=== PATIENT | female | born 1990 | race Caucasian/White ===

== ENCOUNTER 2025-05-09 22:18 | Emergency (ER) | payer BC ==
[2025-05-10] MEDS: Ketorolac 60 MG/2 ML SDV IM ONE (00:14)
== END 2025-05-10 00:39 | disposition home or self-care (01) ==
LOC: JD.ED 22:18
DX: M25.562 Pain in left knee (principal); M25.462 Effusion, left knee; Z88.2 Allergy status to sulfonamides
CPT/HCPCS: 73564; 96372; 99283; J1171; J1885; 99284